=== PATIENT | female | born 1990 | race Caucasian/White ===

== ENCOUNTER → 2016-10-24 | Outpatient (CLI) | payer BC, OTHER ==
[~2016-10-24] MED LIST: ATIVAN0.5 MG PO; BIOTIN1 M1 PO; COLACE 100MG C100 MG PO; IRON325 M1 PO; ISONIAZID TAB300 MG PO; LEXAPRO10 MG PO; NORCO 7.5-3251 EACH PO; PRILOSEC OTC20 MG PO; TORADOL 10 MG T10 MG PO; TRAMADOL HCL50 MG PO; VITAMIN B COMP1 EACH PO; VITAMIN D2000 UNIT PO; VOLTAREN100 GM TP; ZANTAC150 MG PO
== END ==
LOC: RAD 11:59
DX: R76.11 Nonspecific reaction to tuberculin skin test without active tuberculosis (principal)
CPT/HCPCS: 71020

== ENCOUNTER → 2016-12-03 | Outpatient (CLI) | payer BC, OTHER | LOC: RAD 16:06 | DX: M25.561 Pain in right knee (principal); M25.562 Pain in left knee | CPT/HCPCS: 73562 ==

== ENCOUNTER 2017-01-12 22:15 | Observation (INO) | payer BC, OTHER ==
[~2017-01-12] VITALS: Ht 160 cm; Wt 72.6 kg
[~2017-01-12 22:15] MED LIST changes: -ATIVAN0.5 MG PO; -BIOTIN1 M1 PO; -IRON325 M1 PO; -ISONIAZID TAB300 MG PO; -LEXAPRO10 MG PO; -NORCO 7.5-3251 EACH PO; -PRILOSEC OTC20 MG PO; -TRAMADOL HCL50 MG PO; -VITAMIN B COMP1 EACH PO; -VITAMIN D2000 UNIT PO; -VOLTAREN100 GM TP; -ZANTAC150 MG PO
[2017-01-12 23:45] LABS: HEMOGLOBIN 14.5 gm/dl (12.3-15.3); RED BLOOD COUNT 4.71 M/UL (4.00-5.10); WHITE BLOOD COUNT 24.3 K/UL (4.5-11.0)
[2017-01-13 00:07] LABS: BUN/CREATININE RATIO 15 (0-10)
[2017-01-13 07:59] LABS: HEMOGLOBIN 13.2 gm/dl (12.3-15.3); RED BLOOD COUNT 4.33 M/UL (4.00-5.10)
[2017-01-13 08:02] LABS: WHITE BLOOD COUNT 16.1 K/UL (4.5-11.0)
[2017-01-13 08:26] LABS: BUN/CREATININE RATIO 13 (0-10)
[2017-01-13] MEDS ORDERED: ISONIAZID TAB300 MG PO (08:33)
[2017-01-13] MEDS ORDERED: VITAMIN B COMP1 EACH PO (08:34)
[2017-01-13] MEDS ORDERED: VITAMIN D2000 UNIT PO (08:34)
[2017-01-13] MEDS ORDERED: IRON325 M1 PO (08:35)
[2017-01-13] MEDS ORDERED: ZANTAC150 MG PO (08:36)
[2017-01-13] MEDS ORDERED: PRILOSEC OTC20 MG PO (08:36)
[2017-01-13] MEDS ORDERED: VOLTAREN100 GM TP (08:37)
[2017-01-13] MEDS ORDERED: LEXAPRO10 MG PO (08:37)
[2017-01-13] MEDS ORDERED: TRAMADOL HCL50 MG PO (08:37)
[2017-01-13] MEDS ORDERED: BIOTIN1 M1 PO (08:38)
[2017-01-13] MEDS ORDERED: ATIVAN0.5 MG PO (08:38)
--- NOTE | 2017-01-14 04:20 | NUR ---
RECEIVED REPORT AT 0400 FROM TIARRA ANTONY RN.
[2017-01-14 06:20] LABS: HEMOGLOBIN 11.6 gm/dl (12.3-15.3)
[2017-01-14 06:55] LABS: RED BLOOD COUNT 3.89 M/UL (4.00-5.10); WHITE BLOOD COUNT 6.7 K/UL (4.5-11.0)
[2017-01-14] MEDS ORDERED: NORCO 7.5-3251 EACH PO (13:29)
[2017-01-14] MEDS ORDERED: COLACE 100MG C100 MG PO (13:29)
== END 2017-01-14 15:01 | disposition home or self-care (01) ==
LOC: ER1 22:15 → ZEROF 01-13 01:45 → MED SURG 4 01-13 01:45
PROVIDERS: Physician Assistant; Surgery; ADMIT Surgery
PROC: 0DTJ4ZZ Resection of Appendix, Percutaneous Endoscopic Approach (ICD-10-PCS; principal; 2017-01-13 11:00)
DX: K35.80 Unspecified acute appendicitis (principal); M06.9 Rheumatoid arthritis, unspecified; F17.210 Nicotine dependence, cigarettes, uncomplicated; Z79.899 Other long term (current) drug therapy; Z90.49 Acquired absence of other specified parts of digestive tract
CPT/HCPCS: 36415; 80053; 81001; 83690; 84703; 85025; 85027; 87086; 94664; 96361; 96365; 96375; 96376; 99285; G0378; J1100; J1335; J1885; J2250; J2270; J2405; J2710; J2765; J3010; J7030; J7050; J7120; Q9962

== ENCOUNTER → 2020-11-22 | Outpatient (CLI) | payer OTHER ==
[~2020-11-22] MED LIST changes: +ATIVAN0.5 MG PO; +BIOTIN1 M1 PO; +COLACE100 MG PO; +IBUPROFEN600 MG PO; +IRON325 M1 PO; +ISONIAZID TAB300 MG PO; +LEXAPRO10 MG PO; +NORCO 5-325 TA1 EACH PO; +NORCO 7.5-3251 EACH PO; +PRILOSEC OTC20 MG PO; +RELAFEN 750 MG750 MG PO; +TOPAMAX100 MG PO; +TRAMADOL HCL50 MG PO; +VITAMIN B COMP1 EACH PO; +VITAMIN D2000 UNIT PO; +VOLTAREN100 GM TP; +ZANTAC150 MG PO
== END ==
LOC: HEART 5 10:06
DX: J45.991 Cough variant asthma (principal); R06.02 Shortness of breath; Z87.891 Personal history of nicotine dependence
CPT/HCPCS: 94010; 95012